=== PATIENT | male | born 1985 | race Caucasian/White ===

== ENCOUNTER 2023-09-27 17:11 | Emergency (ER) | payer BC, SELFPAY ==
[2023-09-27 17:29] VITALS: BP 156/87
[2023-09-27] MEDS: ANCEF 5 IV (19:44)
[2023-09-27] MEDS: ZOFRAN ODT (ORALLY DISINTEGRATING) 4 MG PO (20:07)
--- NOTE | 2023-09-27 20:35 | ED.GENMED ---
History of Present Illness
General
Chief Complaint: Skin Surface Trauma
Source: patient
Exam Limitations: none
Time Seen by Provider: 09/27/23 19:02
Nursing documentation reviewed up to this point in time: agreed with
Travel History
Have you had any contact with someone who has COVID-19?: No
Do you have any symptoms of coronavirus? Fever > 100 degrees, chills, cough, shortness of breath, sore throat, loss of taste or smell, muscle aches, or headache?: No
History of Present Illness
History of Present Illness:
38-year-old male presenting to the emergency department today with concerns of cutting his left ring and pinky finger with a hedge tremor just prior to arrival. He claims that his tetanus shot is up-to-date.
Past History
Past History
ED Past Medical History: Other (Celiac disease)
ED Past Surgical History: Orthopedic
Social History
Tobacco: Non-smoker
Alcohol: None
Drug: None
Personal: Single
Living: with family
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
Review of Systems
Review of Systems
Allergies reviewed?: Yes
All Other Systems: ROS reviewed and negative except as documented in HPI and ROS
Phy Exam
Physical Exam
Physical Exam:
GENERAL: Alert , in no apparent distress
EYE: pupils equal and reactive
NECK: Supple, no significant adenopathy.
ENT: o/p clr, mmm.
CARDIAC: Regular rate and rhythm .
LUNGS: Clear breath sounds bilaterally, no acute respiratory distress, no wheezes/rales/rhonchi
ABDOMEN: Soft, without focal tenderness, no r/g, no cvat
NEUROLOGICAL: Alert and oriented, no focal neuro deficits
SKIN: Laceration to the distal left pinky finger and ring finger the pinky finger there is a laceration that goes vertically through the nail into the nailbed and into the distal portion of the finger roughly 1.5 cm in total length when explored to
its base no foreign body seen. Also laceration that is more superficial to the ring finger of the left hand on the distal pulp 1 cm in length warm and dry, skin intact.
MUSCULOSKELETAL: No edema, well perfused.
PSYCH: Normal and appropriate interaction.
Course
Orders/Labs/Results
Orders:
Orders
09/27/23 19:07
CR Hand - Left Min 3 Views Urgent
Reason For Exam: finger laceration, ring finger pinky jeromy
09/27/23 19:35
CeFAZolin 1 GRAM [Ancef] 1 gram in 5 ml IV NOW
09/27/23 20:04
Ondansetron Orally Disint [Zofran Odt (Orally Disintegrating)] 4 mg PO NOW STA
Vital Signs
Initial and Last Documented VS:
Initial Vital Signs
Temp Pulse Resp BP Pulse Ox
98.3 F 91 16 156/87 98
09/27/23 17:29 09/27/23 17:29 09/27/23 17:29 09/27/23 17:29 09/27/23 17:29
Last Documented Vital Signs
Temp Pulse Resp BP Pulse Ox
98.3 F 83 16 141/91 98
09/27/23 17:29 09/27/23 20:55 09/27/23 17:29 09/27/23 20:55 09/27/23 17:29
Procedures
Laceration Closure
Left Distal Fifth Finger:
Status of Wound: clean
Size of Wound in cm: 2.5
Description of Wound Edges: sharp
Preparation: cleaned with saline
Anesthesia: 2% Lidocaine and Digital-Regional
Revision/Debridement: routine- no revision and irrigate-direct pressure
Wound exploration: explored to base- no FB and no tendon involvement
Type of Closure: single layer closure
Skin Closure Material: 4-0 chromic gut
Number of sutures: 6
Additional information:
6 total sutures 3 to the distal pinky finger 3 to the distal ring finger
MDM/Problems Addressed
MDM/Problems Addressed:
38-year-old male presenting to the emergency department today with concerns of cutting his left ring and pinky finger with a hedge tremor just prior to arrival. He claims that his tetanus shot is up-to-date. Patient was given dose of Ancef as
there was an open fracture seen on x-ray. This was cleaned very thoroughly and the case was discussed with hand surgery. Hand surgery recommended suturing the skin and having follow-up closely. 3 sutures placed to each finger and otherwise
splinted return precautions were given..
*Critical Care Note
Total Time (30-74mins, 75-104mins- exclusive of procedures): Not Applicable
ED Attending Note
-
Portions of this chart may have been created with voice recognition software.� Occasional wrong word or��sound alike� substitutions may have occurred due to the inherent limitations of voice recognition software.
Discharge Plan
Departure
Patient Disposition: Home (Routine Discharge)
Date of Disposition: 09/27/23
Time of Disposition: 20:35
Patient with high blood pressure during this ER visit?: No
Condition: Good
Covid-19: Not Applicable
Discharge Problem:
Fracture of distal phalanx of finger, open, Finger laceration
Instructions: Wound Care (DC), Laceration Repair With Stitches (DC)
Prescriptions:
New
cephalexin 500 mg capsule
500 mg PO QID 3 Days Qty: 12 0RF
No Action
ibuprofen 600 mg tablet
600 mg PO Q6H PRN (Reason: pain) Qty: 20 0RF
Referrals:
Jeanette Bautista PA-C [Family Provider] -
Reginald Santana MD [Active] - Follow up in 2-3 days
Activity Restrictions/Additional Instructions:
You came to the emergency department today with concerns of a laceration to your left pinky finger and ring finger. You are found have a fracture of your distal pinky finger. This was cleaned thoroughly and closed with Monocryl sutures 3 total to
the top of the left pinky finger and 3 to the top of your ring finger. Please keep the area clean covered and splinted until orthopedic follow-up for further recommendation. Return to the emergency department for any worsening, new or concerning
symptoms.
Interventions
Interventions:
*Risk Screen - Suicide Last Done: 09/27/23 18:18
*General Assessment Last Done: 09/27/23 18:18
*Neglect/Abuse Screening Last Done: 09/27/23 18:18
*ED COVID-19 Vaccine History Last Done: 09/27/23 17:29
*Nursing Disposition Last Done: 09/27/23 20:55
ED-Skin Assessment Last Done: 09/27/23 18:16
Discharge Date and Time
Discharge Date/Time: 09/27/23 20:57
[2023-09-27 20:53] VITALS: BP 141/91
[2023-09-27 20:55] VITALS: BP 141/91
== END 2023-09-27 20:57 | disposition home or self-care (01) ==
LOC: EMR 17:11
PROVIDERS: EMERGENCY PHYSICIAN Emergency Medicine; FAMILY PHYSICIAN Physician Assistant Medical
DX: S62.637B Displaced fracture of distal phalanx of left little finger, initial encounter for open fracture (principal); W29.3XXA Contact with powered garden and outdoor hand tools and machinery, initial encounter
CPT/HCPCS: 99284; 96374; 12001; 73130

== ENCOUNTER → 2024-04-25 15:00 | Outpatient (REF) | payer BC, SELFPAY | LOC: CLAB 15:00 | PROVIDERS: ATTENDING PHYSICIAN Physician Assistant | DX: J32.8 Other chronic sinusitis (principal) | CPT/HCPCS: 87070; 87147; 87205 ==

== ENCOUNTER → 2024-04-28 16:08 | Outpatient (REF) | payer BC, SELFPAY | LOC: RAD 16:08 | PROVIDERS: ATTENDING PHYSICIAN Physician Assistant; FAMILY PHYSICIAN Physician Assistant Medical | DX: J32.8 Other chronic sinusitis (principal) | CPT/HCPCS: 70486 ==

== ENCOUNTER 2024-12-06 00:11 | Emergency (ER) | payer BC, SELFPAY ==
[2024-12-06 00:14] VITALS: BP 152/96
[2024-12-06] MEDS: BENADRYL 25 MG PO (02:13)
[2024-12-06] MEDS: DECADRON 10 MG PO (02:13)
[2024-12-06] MEDS: NSS 1000 IV (02:54)
[2024-12-06] MEDS: PEPCID 20 MG IV (03:00)
[2024-12-06] MEDS: BENADRYL 25 MG IV (03:00)
[2024-12-06 03:12] LABS: % Basophils 0.3 % (0-2); % Eosinophils 3.7 % (0-6); % Immature Granulocytes 0.4 % (0-0.5); % Lymphocytes 21.7 % (20.5-51.1); % Monocytes 5.8 % (1.7-9.3); % Neutrophils 68.1 % (42.2-75.2); Absolute Eosinophils 0.3 10^3/uL (0-0.7); Absolute Lymphocytes 1.5 10^3/uL (1.2-3.4); Absolute Monocytes 0.4 10^3/uL (0.1-0.6); Absolute Neutrophils 4.9 10^3/uL (1.4-6.5); Hematocrit 39.1 % (39.0-52.0); Hemoglobin 14.1 g/dL (13.0-18.0); Mean Corp Hgb Conc. 36.1 g/dL (33.0-37.0); Mean Corpuscular Volume 88.7 fL (80.0-94.0); Mean Platelet Volume 9.1 fL (7.4-10.4); Nucleated Red Blood Cells % 0 % (-); Platelet Count 189 10^3/uL (130-400); Red Blood Cell Count 4.41 10^6/uL (4.70-6.10); Red Cell Dist. Width 11.7 % (11.5-14.5); White Blood Cell Count 7.1 10^3/uL (4.8-10.8)
[2024-12-06 03:30] VITALS: BMI 24.4
[2024-12-06 03:34] LABS: ALT (SGPT) 20 U/L (0-50); AST (SGOT) 24 U/L (17-59); Albumin 4.5 g/dl (3.5-5.0); Alkaline Phosphatase 53 U/L (38-126); Blood Urea Nitrogen 23 mg/dl (9-20); Calcium 9.1 mg/dl (8.4-10.2); Carbon Dioxide 25 mmol/L (22-30); Chloride 108 mmol/L (98-107); Glucose 96 mg/dl (70-99); Potassium 3.9 mmol/L (3.5-5.1); Sodium 141 mmol/L (135-145); Total Bilirubin 0.6 mg/dl (0.2-1.3); Total Protein 6.5 g/dl (6.3-8.2); eGFR > 60.00
--- NOTE | 2024-12-06 04:52 | ED.GENMED ---
History of Present Illness
General
Chief Complaint: Allergic Reaction
Time Seen by Provider: 12/06/24 01:29
History of Present Illness
History of Present Illness:
39-year-old male presents to the emergency department with allergic reaction. He developed a rash on his arms and torso. Denies difficulty breathing or swallowing. Denies fever, chills, nausea or vomiting. Reports no chest pain or shortness of
breath.
Past History
Past History
ED Past Medical History: Other (Celiac disease)
ED Past Surgical History: Orthopedic
Social History
Tobacco: Non-smoker
Alcohol: None
Drug: None
Personal: Single
Living: with family
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
Phy Exam
Physical Exam
Physical Exam:
Physical Exam
Vital signs and allergy list reviewed and agreed with.
GENERAL: Alert , in minimal apparent distress
EYE: pupils equal, EOMI, anicteric
NECK: Supple, no significant adenopathy. No masses. Trachea midline
ENT: Oropharynx is clear, mmm.
CARDIAC: Regular rate and rhythm . No M/R/G
LUNGS: Clear breath sounds bilaterally, no acute respiratory distress, no wheezes/rales/rhonchi
ABDOMEN: Soft, without focal tenderness, no r/g, no cvat. Normal BSx4q
NEUROLOGICAL: Alert and oriented, no focal neuro deficits
SKIN: Warm and dry, skin intact. Macular rash consistent with hives on the arms torso waistline. No petechiae
MUSCULOSKELETAL: No edema, well perfused. Moves all 4 extremities
PSYCH: Normal and appropriate interaction.
Course
Orders/Labs/Results
Orders:
Orders
12/06/24 02:01
Dexamethasone Pf [Decadron] 10 mg PO NOW STA
Diphenhydramine [Benadryl] 25 mg PO NOW STA
12/06/24 02:49
0.9% Sodium Chloride 1000 ml [Nss] 1,000 ml IV BOLUS
Diphenhydramine [Benadryl] 25 mg IV NOW STA
Famotidine [Pepcid] 20 mg IV NOW STA
12/06/24 02:52
Complete Blood Count/With Diff Urgent
Comprehensive Metabolic Panel Urgent
Abnormal Lab Results
12/06/24
02:52
RBC 4.41 L 10^6/uL
(4.70-6.10)
MCH 32.0 H pg
(27.0-31.0)
Chloride 108 H mmol/L
(98-107)
BUN 23 H mg/dl
(9-20)
12/06/24 02:52
12/06/24 02:52
Vital Signs
Initial and Last Documented VS:
Initial Vital Signs
Temp Pulse Resp BP Pulse Ox
97.9 F 70 16 152/96 100
12/06/24 00:14 12/06/24 00:14 12/06/24 00:14 12/06/24 00:14 12/06/24 00:14
Last Documented Vital Signs
Temp Pulse Resp BP Pulse Ox
97.7 F 71 14 104/78 99
12/06/24 05:06 12/06/24 05:06 12/06/24 05:06 12/06/24 05:06 12/06/24 05:06
*Critical Care Note
Total Time (30-74mins, 75-104mins- exclusive of procedures): Not Applicable
ED Attending Note
-
Portions of this chart may have been created with voice recognition software.� Occasional wrong word or��sound alike� substitutions may have occurred due to the inherent limitations of voice recognition software.
Discharge Plan
Departure
Patient Disposition: Home (Routine Discharge)
Date of Disposition: 12/06/24
Time of Disposition: 04:49
Patient with high blood pressure during this ER visit?: Yes
Condition: Good
Discharge Problem:
Allergic reaction
Instructions: Allergic reaction - ED discharge instructions, Skin rash - ED discharge instructions
Prescriptions:
New
diphenhydramine HCl [Benadryl] 25 mg capsule
25 mg PO TID PRN (Reason: allergy symptoms) Qty: 14 0RF
prednisone 50 mg Tablet
50 mg PO DAILY Qty: 4 0RF
epinephrine [EpiPen] 0.3 mg/0.3 mL Auto-Injector
0.3 mg IM .STAT PRN (Reason: anaphylaxis) Qty: 1 0RF
Referrals:
Jeanette Bautista PA-C [Family Provider, Family Practice]
Blessing Tao MD [Consulting Staff, [employer]]
Activity Restrictions/Additional Instructions:
Thank You for choosing [facility].
It was a pleasure meeting you and taking part in your care. We hope for your continued healing and wellness.
Please read discharge instructions in their entirety. However, they are for general education and may not describe your exact diagnosis at discharge. Information on your ER visit and medical conditions were discussed with you along with appropriate
follow up information...
If indicated, please take your medications as instructed and indicated on discharge paperwork.
Please schedule a follow up appointment as directed. Call to schedule an appointment
Please return to the emergency department with ANY change in, persisting, or worsening of symptoms. If any of your symptoms do not improve, or persist, or become more severe within 6-12 hours, please return to the emergency department for further
care.
Please return to the emergency department if you develop a headache, neck pain/stiffness, fever greater than 100.4F, chest pain, shortness of breath, persistent nausea, vomiting, slurred speech, difficulty walking, numbness/tingling, weakness, signs
of infection or any other symptoms that are worrisome to you.
If you have any questions or concerns please do not hesitate to call the Hospital at or E-mail me directly at [email or web address]
Interventions
Interventions:
*Risk Screen - Suicide Last Done: 12/06/24 00:14
*General Assessment Last Done: 12/06/24 03:02
*Neglect/Abuse Screening Last Done: 12/06/24 00:14
*ED- Fall Risk Assessment Last Done: 12/06/24 00:14
*ED COVID-19 Vaccine History Last Done: 12/06/24 00:14
*Nursing Disposition Last Done: 12/06/24 05:06
ED- Cardiac Assessment Last Done: 12/06/24 00:30
ED- Pulmonary Assessment Last Done: 12/06/24 00:30
ED-Skin Assessment Last Done: 12/06/24 00:30
Discharge Date and Time
Discharge Date/Time: 12/06/24 05:08
Print Language: [id number]
[2024-12-06 04:55] VITALS: BP 104/77
[2024-12-06 05:06] VITALS: BP 104/78
== END 2024-12-06 05:08 | disposition home or self-care (01) ==
LOC: EMR 00:11
PROVIDERS: EMERGENCY PHYSICIAN Student in an Organized Health Care Education/Training Program; FAMILY PHYSICIAN Physician Assistant Medical
DX: T78.40XA Allergy, unspecified, initial encounter (principal); Y92.9 Unspecified place or not applicable; K90.0 Celiac disease
CPT/HCPCS: 99283; 96374; 96375; 96361; 80053; 85025